=== PATIENT | female | born 1975 | race Caucasian/White ===

== ENCOUNTER 2016-07-07 20:35 | Emergency (ER) | payer OTHER ==
[~2016-07-07 20:35] MED LIST: ULTRAM50 M1 PO
[2016-07-07] MEDS ORDERED: AMITRIPTYLINE H10 M2 PO (20:58)
== END 2016-07-07 21:10 | disposition home or self-care (01) ==
LOC: ED 20:35
DX: M79.604 Pain in right leg (principal); M79.605 Pain in left leg